=== PATIENT | female | born 1950 | race Caucasian/White ===

== ENCOUNTER 2016-08-12 06:53 | Inpatient (IN) | payer MEDICARE, OTHER ==
[~2016-08-12] VITALS: Ht 165.1 cm; Wt 81.4 kg
[2016-08-12] VITALS (30 sets, daily range): BP systolic 117–182; BP diastolic 52–79; PULSE 64–102; RESP 12–21; Ht 165.1 cm; Wt 81.4 kg
[~2016-08-12 06:53] MED LIST: BUPIVACAINE 0.5% (SDV) 30 ML, morphine SULFATE (PF) 8 MG, EPINEPHrine 0.3 MG, KETOROLAC... IRR SCH; CEFAZOLIN 2 GM/50 ML (PMX) 50 ML IVPB ONE; DEXAMETHASONE 1 MG TAB PO ONE; GABAPENTIN 300 MG CAP PO ONE; TRANEXAMIC ACID 1,000 MG in SOD CHLORIDE 0.9% 100 ML IVPB ONE; traMADol 50 MG TAB PO ONE
--- NOTE | 2016-08-12 06:53 | HPN ---
Date/Time of Note Date/Time of Note DATE: 08/12/16 TIME: 06:53 Interval H&P Admission Note Pt. seen H&P reviewed: No system changes JERAD MOE MD Aug 12, 2016 06:53
[2016-08-12] MEDS ORDERED: LISI40TA9 PO (08:20)
[2016-08-12] MEDS ORDERED: TRAM50TA2 PO (08:21)
[2016-08-12] MEDS ORDERED: THROMBIN 5000 UNIT VIAL ONE (08:22)
[2016-08-12] MEDS ORDERED: CA CHLORIDE 10% 10 ML SYRINGE ONE (08:22)
[2016-08-12] MEDS ORDERED: BUPIVACAINE 0.5%/EPI (SDV) 10 ML INJ ONE (08:22)
[2016-08-12] MEDS ORDERED: POLYMYXIN/BACITRACIN 1L IRRIG ONE (08:22)
[2016-08-12] MEDS ORDERED: MIDAZOLAM 1 MG/ML 2 ML INJ ONE (08:27)
[2016-08-12] MEDS ORDERED: ROPIVACAINE 0.5 % 30 ML VIAL ONE (08:29)
[2016-08-12] MEDS ORDERED: hydrALAzine 20 MG INJ ONE (08:30)
[2016-08-12] MEDS ORDERED: GLYCOPYRROLATE 0.4 MG INJ ONE (10:29)
[2016-08-12] MEDS ORDERED: PROPOFOL 20 ML ONE (10:29)
[2016-08-12] MEDS ORDERED: ONDANSETRON 4 MG INJ ONE (10:29)
[2016-08-12] MEDS ORDERED: ROCURONIUM 50 MG INJ ONE (10:29)
[2016-08-12] MEDS ORDERED: NEOSTIGMINE 3 MG/3 ML SYRINGE ONE (10:29)
[2016-08-12] MEDS ORDERED: LIDOCAINE 2% (SDV) 5 ML INJ ONE (10:29)
[2016-08-12] MEDS ORDERED: OXYCODONE/ACETAMINOPHEN (5/325) TAB PO PRN ×2 (10:30)
[2016-08-12] MEDS ORDERED: morphine 2 MG INJ IV PRN (10:30)
[2016-08-12] MEDS ORDERED: TRANEXAMIC ACID 1,000 MG in SOD CHLORIDE 0.9% 100 ML IV ONE (10:30)
[2016-08-12] MEDS ORDERED: ACETAMINOPHEN 500 MG TAB PO PRN (10:30)
[2016-08-12] MEDS ORDERED: HYDROmorphONE (0.2 MG/ML) 10ML SYG IV PRN ×2 (10:30)
[2016-08-12] MEDS ORDERED: METOCLOPRAMIDE 10 MG INJ IV PRN (10:30)
[2016-08-12] MEDS ORDERED: LABETALOL HCL 20MG INJ IV PRN (10:30)
[2016-08-12] MEDS ORDERED: ONDANSETRON 4 MG INJ IV PRN ×2 (10:30)
[2016-08-12] MEDS ORDERED: hydrALAzine 20 MG INJ IV PRN (10:30)
[2016-08-12] MEDS: CEFAZOLIN 1 GM/50 ML (PMX) 50 ML IVPB SCH ×2 (10:30→18:43)
[2016-08-12] MEDS ORDERED: morphine 4 MG/ML VIAL IV PRN (10:30)
[2016-08-12] MEDS ORDERED: FENTAnyl 50 MCG/ML VIAL IV PRN (10:30)
[2016-08-12] MEDS ORDERED: NALOXONE (0.4 MG/ML) INJ IV PRN (10:30)
[2016-08-12] MEDS ORDERED: MEPERIDINE 25 MG INJ IV PRN (10:30)
[2016-08-12] MEDS ORDERED: ZOLPIDEM 5 MG TAB PO PRN (10:30)
[2016-08-12] MEDS ORDERED: MAGNESIUM HYDROXIDE 30ML CUP PO PRN (10:30)
[2016-08-12] MEDS ORDERED: DIPHENHYDRAMINE 50 MG INJ IV PRN ×2 (10:30)
[2016-08-12] MEDS ORDERED: CEFAZOLIN 1 GM INJ ONE (10:30)
[2016-08-12] MEDS ORDERED: KETOROLAC 15 MG INJ IV PRN (10:30)
--- NOTE | 2016-08-12 11:08 | OPR ---
DATE OF OPERATION: 08/12/2016 SURGEON: Jerad Garcia MD OPERATOR PREFINISH: Donny Oakes MD PREOPERATIVE DIAGNOSIS: Right shoulder rotator cuff tear arthropathy. POSTOPERATIVE DIAGNOSES 1. Right shoulder secondary osteoarthritis. 2. Right shoulder rotator cuff tear, massive. OPERATION PERFORMED: Right reverse total shoulder replacement. Senior Service Aide surgeon, Donny Oakes MD, was asked to be present at my request as a result of the complexit y associated with this procedure, including positioning of the extremity, manipulation and protectio n of the neurovascular structures. In my opinion, the assistance offered by a surgical technologist i s insufficient and Dr. Oakes should be compensated for his time. PROCEDURE IN DETAIL: Following administration of general endotracheal anesthesia, the patient was p laced in the beach chair position. The right upper extremity was prepped and draped in the usual st erile fashion. An extended deltopectoral incision was then undertaken, exposing the conjoined tendo n, retracting it medially. The subscapularis was then detached. The superior rotator cuff was defi cient. The joint was then inspected. Severe changes were noted in the biceps with complete tendino regi and splitting In addition, there was significant arthritis with no cartilage. The humeral hea d cut was then made in the appropriate degree of version and inclination followed by retraction. Th e peripheral capsulectomy was then performed around the glenoid. The glenoid canal was entered and prepared for a DePuy baseplate. The actual baseplate was then implanted with 4 peripheral screws wi th solid fixation. A 38 mm glenosphere was then applied also with solid fixation. The humerus was then reamed up to the 12 mm size followed by insertion of a 12 mm DePuy reverse comp onent with a 9 mm liner. The joint was taken through a full range of motion with no evident instabi lity. The joint was then thoroughly irrigated, closed in layers using Prineo dressing for the final closure. A watertight closure was obtained. The patient was then awakened after being placed in a sling. Estimated blood loss for this procedure was 100 mL. Postoperative x-rays will be obtained in the recovery room. Dictated By: JERAD ORTEGA/NTS Conf#: [id number] DID#: [id number]
--- NOTE | 2016-08-12 11:57 | RADRPT ---
PROCEDURE: XR Right Shoulder CLINICAL INDICATION: Postop TECHNIQUE: An AP and a Y-view were submitted. COMPARISON: None FINDINGS: Osseous structures: A reverse total right shoulder prosthesis appears to be well seated. The osseou s elements are otherwise rarefied but intact. Joint spaces: The prosthetic glenohumeral joint appears unremarkable. The AC joint appears normal. Soft tissues: The soft tissues appear generous. IMPRESSION: 1. There is a well-placed reversed total right shoulder replacement. 2. Osteoporosis with the osseous structures intact. Physician Katelin Date Time Electronically viewed and signed by Mckay Cordova Physician on 08/12/2016 11:57 RH/
[2016-08-12] MEDS: DEXAMETHASONE 2 MG TAB PO SCH ×2 (12:13→18:43)
--- NOTE | 2016-08-12 13:53 | PDOCDIS ---
Discharge Instructions DIAGNOSIS Discharge Diagnosis: Shoulder arthritis CONDITION Patient Condition: Good HOME CARE INSTRUCTIONS: Diet Instructions: RegularSpecial Diet: new admit ACTIVITY: Activity Restrictions: Slowly Increase Activity Bathing Restrictions: Shower FOLLOW UP/APPOINTMENTS Appointments Two weeks SCHOOL/WORK RELEASE May return to School/Work with: With Restrictions School/Work Release Comment: Five pound table top usage for four weeks JERAD MOE MD Aug 12, 2016 13:53
[2016-08-12] MEDS: SENNA/DOCUSATE NA (8.6MG/50MG) TAB PO SCH (21:00)
[2016-08-12] MEDS ORDERED: GABAPENTIN 300 MG CAP PO SCH (21:00)
[2016-08-13] MEDS: DEXAMETHASONE 2 MG TAB PO SCH ×2 (00:25→05:14)
[2016-08-13] MEDS: CEFAZOLIN 1 GM/50 ML (PMX) 50 ML IVPB SCH (01:39)
--- NOTE | 2016-08-13 06:47 | PN ---
Date/Time of Note Date/Time of Note DATE: 08/13/16 TIME: 06:46 24 hour Interval Summary Patient is awake and alert with no complaints. Physical examination: Her wound is clean and dry. She is neurologically intact. She has no signs of DVT. Impression: Status post reverse total shoulder Plan: She will do physical therapy this morning and be discharged following this procedure. Physical Exam Vital Signs Date Time Temp Pulse Resp B/P Pulse Ox O2 Delivery O2 Flow Rate FiO2 08/12/16 20:13 98.1 78 18 138/77 96 08/12/16 15:45 Nasal Cannula 2.0 Intake and Output 08/12/16 08/12/16 08/13/16 15:00 23:00 07:00 Intake Total 1200 ml 530 ml 580 ml Output Total 75 ml Balance 1125 ml 530 ml 580 ml VTE Prophylaxis VTE Prophylaxis Intervention: anti-embolic stocking Lines/Catheters IV Catheter Type: Saline Lock Erickson in Place: No Medications Medications Home Meds Reported Medications Tramadol HCl (Tramadol HCl) 50 Mg Tablet, 50 MG PO BID Y for PAIN, #60 TAB 08/12/16 Lisinopril* (Lisinopril*) 40 Mg Tablet, 40 MG PO DAILY, #30 TAB 08/12/16 JERAD MOE MD Aug 13, 2016 06:47
--- NOTE | 2016-08-13 06:48 | DS ---
Date/Time of Note Date/Time of Note DATE: 08/13/16 TIME: 06:47 Discharge Summary Admission/Discharge Info Admit Date/Time Aug 12, 2016 at 06:53 Discharge Date/Time August 13, 2016 following physical therapy Final Diagnosis Right shoulder primary arthritis with rotator cuff tear Patient Condition: Good Procedures Right reverse total shoulder replacement Hx of Present Illness Pain and stiffness in the right shoulder with severe pain at night Hospital Course Patient underwent an uncomplicated reverse total shoulder replacement. Postoperative day #1 she was awake and alert tolerated physical therapy well and was discharged home Home Meds Reported Medications Tramadol HCl (Tramadol HCl) 50 Mg Tablet, 50 MG PO BID Y for PAIN, #60 TAB 08/12/16 Lisinopril* (Lisinopril*) 40 Mg Tablet, 40 MG PO DAILY, #30 TAB 08/12/16 Follow-up Plan 2 weeks Primary Care Provider Not On Staff Doctor JERAD MOE MD Aug 13, 2016 06:48
[2016-08-13 07:00] VITALS: BP 123/59; RESP 20
[2016-08-13] MEDS ORDERED: LISINOPRIL 20 MG TAB PO SCH (09:00)
[2016-08-13] MEDS: SENNA/DOCUSATE NA (8.6MG/50MG) TAB PO SCH (09:00)
[2016-08-13] MEDS ORDERED: ASPIRIN 81 MG TAB PO SCH (09:00)
== END 2016-08-13 11:20 | disposition home or self-care (01) | DRG 483 ==
LOC: REC 06:53 → MS1 12:50
PROVIDERS: ADMIT Orthopaedic Surgery; ATTEND Orthopaedic Surgery
PROC: 0RRJ00Z Replacement of Right Shoulder Joint with Reverse Ball and Socket Synthetic Substitute, Open Approach (ICD-10-PCS; principal; 2016-08-12 09:30)
DX: M19.011 Primary osteoarthritis, right shoulder (principal); I10 Essential (primary) hypertension; M75.101 Unspecified rotator cuff tear or rupture of right shoulder, not specified as traumatic; K21.9 Gastro-esophageal reflux disease without esophagitis; E78.5 Hyperlipidemia, unspecified; F17.210 Nicotine dependence, cigarettes, uncomplicated; M51.9 Unspecified thoracic, thoracolumbar and lumbosacral intervertebral disc disorder; Z87.11 Personal history of peptic ulcer disease
CPT/HCPCS: 86999; 88304; 88311; 97161; C1776; J0171; J0360; J0690; J0735; J1885; J2175; J2250; J2274; J2405; J2710; J2795; J3010; J3370